=== PATIENT | male | born 1990 | race Caucasian/White ===

== ENCOUNTER 2022-01-10 20:08 | Emergency (ER) | payer SELFPAY ==
[2022-01-10 20:23] VITALS: BP 122/66; PULSE 73; RESP 15; O2SAT 95
[2022-01-10 20:30] VITALS: BP 127/74; PULSE 70; O2SAT 95
--- NOTE | 2022-01-10 20:48 | CTR_ITS ---
PROCEDURE INFORMATION: Exam: CT Abdomen And Pelvis Without Contrast Exam date and time: 01/10/2022 8:56 PM Age: 31 years old Clinical indication: Abdominal pain; Flank; Left; Additional info: Left flank llq pain TECHNIQUE: Imaging protocol: Computed tomography of the abdomen and pelvis without contrast. Radiation optimization: All CT scans at this facility use at least one of these dose optimization techniques: automated exposure control; mA and/or kV adjustment per patient size (includes targeted exams where dose is matched to clinical indication); or iterative reconstruction. COMPARISON: No relevant prior studies available. RADIATION DOSE METRICS: Total DLP (mGy-cm): 974.75 FINDINGS: Liver: Subcentimeter cyst noted in the posterior right hepatic lobe. Gallbladder and bile ducts: Normal. No calcified stones. No ductal dilation. Pancreas: Normal. No ductal dilation. Spleen: Normal. No splenomegaly. Adrenal glands: Normal. No mass. Kidneys and ureters: Normal. No hydronephrosis. Stomach and bowel: Unremarkable. No obstruction. No mucosal thickening. Appendix: No evidence of appendicitis. Intraperitoneal space: Unremarkable. No free air. No significant fluid collection. Vasculature: Unremarkable. No abdominal aortic aneurysm. Lymph nodes: Unremarkable. No enlarged lymph nodes. Urinary bladder: Under distended bladder with circumferential wall thickening. Reproductive: Unremarkable as visualized. Bones/joints: No acute fracture. Soft tissues: Unremarkable. CT/CT kidney stone [id number] IMPRESSION: No renal stones. Circumferential wall thickening the bladder, correlate with urinalysis to assess for cystitis.
[2022-01-10 21:06] LABS: Basophils # 0.1 10^3/uL (0.0-0.1); Basophils % 0.5 %; Eosinophils # 0.1 10^3/uL (0.0-0.8); Eosinophils % 0.3 %; Hematocrit 47.2 % (42.0-52.0); Hemoglobin 17.1 g/dL (11.7-16.6); Lymphocytes # 1.2 10^3/uL (0.8-4.8); Lymphocytes % 6.8 %; Mean Corpuscular HGB Conc 36.2 g/dL (30.0-36.0); Mean Corpuscular Hemoglobin 34.2 pg (28.0-34.0); Mean Corpuscular Volume 94.4 fl (80-94); Mean Platelet Volume 11.4 fL (7.4-10.4); Monocytes # 1.1 10^3/uL (0.2-0.9); Monocytes % 6.1 %; Neutrophils # 15.37 10^3/uL (1.8-7.7); Neutrophils % 85.4 %; Nucleated Red Blood Cells % 0 %; Platelet Count 239 10^3/cmm (130-400); Red Cell Distribution Width 11.8 % (12.1-15.1)
[2022-01-10] MEDS: ondansetron 2 mg/ML SDV 2 mL 4 MG IVP (21:10)
[2022-01-10] MEDS: morphine 4 mg/mL SDV 1 mL IVP (21:10)
[2022-01-10] MEDS: sodium chloride 0.9% 1,000 ML 999 ML IV (21:10)
[2022-01-10 21:24] LABS: Add Urine Microscopic? YES; Bilirubin Urine Neg (Negative); Blood Urine 3+ (Negative); Glucose Urine UA Norm (Normal); Ketones Urine Negative (Negative); Leukocyte Esterase Urine Negative (Negative); Nitrate Urine Negative (Negative); Protein Urine Neg (Negative); Urine Appearance Clear (CLEAR); Urine Color Yellow (Yellow); Urobilinogen Urine Norm (Negative); pH Urine 7 (5-7)
[2022-01-10 21:25] LABS: Alanine Aminotransferase 19 U/L (0-41); Alkaline Phosphatase 80 IU/L (40-130); Anion Gap 22.7 (5-19); Aspartate Amino Transferase 26 U/L (0-40); Blood Urea Nitrogen 20 mg/dL (6-20); Calcium 9.6 mg/dL (8.5-10.5); Carbon Dioxide 22 mmol/L (22-29); Chloride 97 mmol/L (98-107); Globulin 2.7 g/dL (1.3-4.6); Glomerular Filtration Rate 63.6 mL/min (90-130); Glucose 100 mg/dL (65-115); Lipase 19 U/L (13-60); Osmolality Calculated 289 mOsm/kg (285-295); Potassium 3.7 mmol/L (3.5-5.1); Sodium 138 mmol/L (136-145); Total Bilirubin 0.6 mg/dL (0.15-1.2); Total Protein 7.7 g/dL (6.6-8.7)
[2022-01-10 21:27] LABS: Add Urine Culture? Yes; Bacteria Urine TRACE /hpf; Mucus Urine 1+ /hpf; RBC Urine 15-25 /hpf (0-2); Squamous Epithelial Cell Urine 0-4 /hpf (0-5); WBC Urine 0-4 /hpf (0-5)
[2022-01-10 21:30] VITALS: BP 134/72; PULSE 71; O2SAT 98
[2022-01-10 22:00] VITALS: BP 133/71; PULSE 64; O2SAT 96
[2022-01-10 22:30] VITALS: BP 122/64; PULSE 56; O2SAT 97
--- NOTE | 2022-01-10 22:49 | W.ED.ABDPA2 ---
HPI - Abdominal Pain General: Chief Complaint: Abdominal Pain Stated Complaint: ABD PAIN Time Seen by Provider: 01/10/22 20:36 Source: patient History of Present Illness: 31-year-old male who began to complain of left-sided flank and left lower quadrant pain earlier today. Sudden onset. He vomited as well. No fever. He had 1 episode of urgency of urine. Pain improved after IV pain medication in route on the ambulance. He notes some continued left lower quadrant type tenderness. MD elicited complaint: abdominal pain and flank pain Pertinent past history: none Onset (ago): hour(s) Pain Consistency: constant Location: LLQ and L flank Quality: stabbing and aching Migration to: no migration Exacerbating factors: nothing Relieving factors: nothing Associated Symptoms: Reports change in bowel habits, constipation (Mild), nausea and vomiting; Denies dysuria, fever(s), hematochezia, hematuria and hematemesis Review of Systems Const: Denies: fever(s) ENMT: Denies: throat pain Card: Denies: chest pain Resp: Denies: dyspnea GI: Reports: nausea, vomiting, constipation (Mild) and change in bowel habits; Denies: hematemesis or hematochezia : Reports: flank pain and urinary urgency; Denies: dysuria or hematuria Skin/Breast: Denies: rash Neuro: Denies: headache(s) Physical Exam Const: GENERAL APPEARANCE: cooperative; not frail appearing HENMT: COMMON NORMALS: normocephalic, atraumatic and Normal external nose present HEAD & SCALP: normocephalic and atraumatic NOSE: Normal external nose present and No nasal polyps present Eye: COMMON NORMALS: Equal, round and reactive pupils present and EOMs intact bilaterally PUPIL: Yes Equal, round and reactive pupils present Chest: COMMONS NORMALS: normal inspection of the chest CHEST: Yes Symmetrical chest wall rise Resp: COMMON NORMALS: normal respiratory effort, No use of accessory muscles and clear to auscultation bilaterally AUSCULTATION: clear to auscultation bilaterally Cardio: COMMON NORMALS: regular rate and regular rhythm RATE: regular rate RHYTHM: regular rhythm GI: COMMON NORMALS: Normal to inspection, nondistended, normoactive bowel sounds present and Soft to palpation PALPATION: Yes Soft to palpation and Yes Tenderness to palpation present (GI) Details: LLQ : BLADDER/KIDNEY EXAM: Yes CVA tenderness on the left (Mild) Back/Pelvis: GENERAL BACK: Yes CVA tenderness Extremity: COMMON NORMALS: no pedal edema Neuro: NACHO COMA SCALE: document GCS findings Kimberly coma scale eye opening: Spontaneous Nacho coma scale verbal response: Orientated Kimberly coma scale motor response: Obey commands Nacho coma scale total score: 15 Skin: COMMON NORMALS: no rashes or lesions noted GENERAL SKIN EXAM: no rashes or lesions noted Course Vital Signs: Vital signs: Vital Signs Pulse Rate 56 L 01/10/22 22:30 Respiratory Rate 15 01/10/22 20:23 Blood Pressure 122/64 01/10/22 22:30 Pulse Oximetry 97 01/10/22 22:30 MDM - Abdominal Pain Medical Decision Making White blood cell count is 18. Creatinine is 1.3. Pain is improved here. CT does not show an obstructing stone. Bowel is normal. There is some wall thickening of the bladder, but the patient does not have urinary tract infection by urinalysis. He does have some microscopic hematuria, likely a passed stone. With improvement in his symptoms he will be allowed home. Lab Data : 01/10/22 20:30 01/10/22 20:30 Labs/Radiology: Radiology Impressions Abdomen/Pelvis CT 01/10/22 20:48 IMPRESSION: No renal stones. Circumferential wall thickening the bladder, correlate with urinalysis to assess for cystitis. Laboratory Results WBC 18.0 10^3/uL (4.0-10.0) H 01/10/22 20:30 RBC 5.00 10^6/uL (4.1-5.3) 01/10/22 20:30 Hgb 17.1 g/dL (11.7-16.6) H 01/10/22 20:30 Hct 47.2 % (42.0-52.0) 01/10/22 20:30 MCV 94.4 fl (80-94) H 01/10/22 20:30 MCH 34.2 pg (28.0-34.0) H 01/10/22 20:30 MCHC 36.2 g/dL (30.0-36.0) H 01/10/22 20:30 RDW 11.8 % (12.1-15.1) L 01/10/22 20:30 Plt Count 239 10^3/cmm (130-400) 01/10/22 20:30 MPV 11.4 fL (7.4-10.4) H 01/10/22 20:30 Neut % (Auto) 85.4 % 01/10/22 20: Lymph % (Auto) 6.8 % 01/10/22 20:30 [place] % (Auto) 6.1 % 01/10/22 20:30 Eos % (Auto) 0.3 % 01/10/22 20:30 Baso % (Auto) 0.5 % 01/10/22 20:30 Neut # (Auto) 15.37 10^3/uL (1.8-7.7) H 01/10/22 20:30 Lymph # (Auto) 1.2 10^3/uL (0.8-4.8) 01/10/22 20: [place] # (Auto) 1.1 10^3/uL (0.2-0.9) H 01/10/22 20:30 Eos # (Auto) 0.1 10^3/uL (0.0-0.8) 01/10/22 20: Baso # (Auto) 0.1 10^3/uL (0.0-0.1) 01/10/22 20: Nucleated RBC % (auto) 0 % 01/10/22: Nucleated RBCs # 0.0 /100WBC 01/10/22 20:30 Sodium 138 mmol/L (136-145) 01/10/22 20:30 Potassium 3.7 mmol/L (3.5-5.1) 01/10/22 20:30 Chloride 97 mmol/L (98-107) L 01/10/22 20:30 Carbon Dioxide 22 mmol/L (22-29) 01/10/22 20:30 Anion Gap 22.7 (5-19) H 01/10/22 20:30 BUN 20 mg/dL (6-20) 01/10/22 20:30 Creatinine 1.3 mg/dL (0.7-1.2) H 01/10/22 20:30 GFR Calculation 63.6 mL/min (90-130) L 01/10/22 20: Glucose 100 mg/dL (65-115) 01/10/22 20:30 Calculated Osmolality 289 mOsm/kg (285-295) 07/08/22 20:30 Calcium 9.6 mg/dL (8.5-10.5) 01/10/22 20:30 Total Bilirubin 0.6 mg/dL (0.15-1.2) 01/10/22 20:30 AST 26 U/L (0-40) 01/10/22 20:30 ALT 19 U/L (0-41) 01/10/22 20:30 Alkaline Phosphatase 80 IU/L (40-130) 01/10/22 20:30 C-Reactive Protein 3.0 mg/L (0.0-4.9) 01/10/22 20:30 Total Protein 7.7 g/dL (6.6-8.7) 01/10/22 20:30 Albumin 5.0 g/dL (3.5-5.2) 01/10/22 20:30 Globulin 2.7 g/dL (1.3-4.6) 01/10/22 20:30 Lipase 19 U/L (13-60) 01/10/22 20:30 Urine Color Yellow (Yellow) 01/10/22 20:53 Urine Appearance Clear (CLEAR) 01/10/22 20:53 Urine pH 7 (5-7) 01/10/22 20:53 Ur Specific [place] 1.010 (1.005-1.030) 01/10/22 20:53 Urine Protein Neg (Negative) 01/10/22 20:53 Urine Glucose (UA) Norm (Normal) 01/10/22 20:53 Urine Ketones Negative (Negative) 01/10/22 20:53 Urine Blood 3+ (Negative) H 01/10/22 20:53 Urine Nitrate Negative (Negative) 01/10/22 20:53 Urine Bilirubin Neg (Negative) 01/10/22 20:53 Urine Urobilinogen Norm mg/dL (Negative) 01/10/22 20:53 Ur Leukocyte Esterase Negative (Negative) 01/10/22 20:53 Urine RBC 15-25 /hpf (0-2) H 01/10/22 20:53 Urine WBC 0-4 /hpf (0-5) H 01/10/22 20:53 Ur Squamous Epith Cells 0-4 /hpf (0-5) H 01/10/22 20:53 Amorphous Sediment Not Reportable 01/10/22 20:53 Urine Bacteria Trace /hpf (NONE) 01/10/22 20:53 Urine Mucus 1+ /hpf 01/10/22 20:53 Discharge Plan Discharge Patient Disposition: Home Clinical Impression: Renal colic Condition: Stable Prescriptions: New hydrocodone-acetaminophen 5-325 mg tablet 1 tab PO Q8H PRN (Reason: pain) Qty: 7 0RF ondansetron 4 mg film 4 mg PO DAILY PRN (Reason: nausea and vomiting) Qty: 10 0RF Discharge Orders: Discharge ED (Routine); Ordered 01/10/22 Ordered By: Chencho Cross Patient Instructions: Renal Colic (ED) Activity Restrictions/Additional Instructions: Return for worsening pain despite treatment, fever greater than 100, vomiting liquids or medications, any other concerning symptoms. 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
--- NOTE | 2022-01-10 22:52 | PC.NURSE ---
Patient sent home with Oxycodone5/325 per MD order.
[2022-01-10] MEDS: ketorolac 30 mg/mL INJ 15 MG IVP (22:57)
== END 2022-01-10 23:27 | disposition home or self-care (01) ==
PROVIDERS: Emergency Provider Emergency Medicine
DX: N23 Unspecified renal colic (principal)
CPT/HCPCS: 74176; 80053; 81001; 83690; 85025; 86140; 87086; 96374; 96375; 99285; J1885; J2270; J2405; J7030

== ENCOUNTER 2024-12-07 15:56 | Outpatient (CLI) | payer OTHER, SELFPAY ==
--- NOTE | 2024-12-07 16:14 | US_ITS ---
WS: [id number] INDICATION: Neck lump TECHNIQUE: Ultrasound soft tissue FINDINGS: Ultrasound soft tissue neck area of concern. Cystic appearing structures in the area of concern are nonspecific but may be due to ductal dilatation in the area of the LEFT submandibular gland. Salivary gland ductal dilatation can be seen with sialoadenitis. Recommend further evaluation with contrast-enhanced neck CT for better anatomic detail of the submandibular gland and related structures. US/US soft tissue head neck [id number] IMPRESSION: See discussion above
== END 2024-12-07 15:57 | disposition home or self-care (01) ==
PROVIDERS: Visit Provider Nurse Practitioner Family
DX: R22.1 Localized swelling, mass and lump, neck (principal)
CPT/HCPCS: 76536

== ENCOUNTER 2024-12-27 15:41 | Outpatient (CLI) | payer OTHER, SELFPAY ==
--- NOTE | 2024-12-27 15:57 | CT_ITS ---
WS: [id number] CT NECK WITH CONTRAST HISTORY: LOCALIZED SWELLING, MASS AND LUMP, NECK, LEFT pain. TECHNIQUE: Contiguous 2 mm axial images are performed through the neck with intravenous contrast. Sagittal and coronal reformats are also submitted. All CT scans at [facility] use at least one of these dose optimization techniques: automated exposure control; mA and/or kV adjustment per patient size (includes targeted exams where dose is matched to clinical indication); or iterative reconstruction. CONTRAST: CONTRAST: Omnipaque 350; 100 mL IV. DLP: 198.02 mGy.cm COMPARISON: None available. BB marker is placed over the LEFT neck at the site of swelling. LEFT submandibular gland is enlarged as compared to the RIGHT. The enlarged portion of the LEFT submandibular gland extends into the LEFT parapharyngeal space and mucosa. There is complete obliteration of the LEFT parapharyngeal fat in the parapharyngeal space. This mass is poorly defined and indistinct from the submandibular gland. There are a few small adjacent lymph nodes. The largest lymph node is at level 1B measuring 1.2 cm. There are a few additional smaller lymph nodes along the cervical chains which appear normal. No inflammation surrounding the submandibular or parotid glands. The ducts are normal. Tongue base appears normal. No compromise of the airway. Normal epiglottis. Normal thyroid gland. Parotid gland is negative. Lung apices are clear. Negative cervical spine. CT/CT neck w con* [id number] IMPRESSION: 1. Poorly defined soft tissue mass centered at the LEFT mandibular angle which is inseparable from the LEFT submandibular gland. This may be part of the LEFT submandibular gland but it is quite asymmetric to the RIGHT. Also no significa nt enhancement. 2. The soft tissue density continues into the RIGHT parapharyngeal space with complete obliteration of the fat. Suspicious for neoplasm until proven otherwis e. 3. Indeterminate level 1B lymph node on the LEFT measuring 1.2 cm. Recommendation: Follow-up with ENT.
[2024-12-27] MEDS: iohexol 350 mg/mL 500 mL Btl (per mL) IV (16:33)
== END 2024-12-27 15:42 | disposition home or self-care (01) ==
LOC: RAD 15:43
PROVIDERS: Visit Provider Nurse Practitioner Family
DX: R22.1 Localized swelling, mass and lump, neck (principal)
CPT/HCPCS: 70491

== ENCOUNTER 2025-02-22 14:41 | Outpatient (CLI) | payer OTHER, SELFPAY ==
--- NOTE | 2025-02-22 14:53 | MR_ITS ---
WS: [id number] MRI NECK WITH CONTRAST TECHNIQUE: Noncontrast axial T1, axial T2 FSE fat sat, coronal T2 fat sat, coronal T1, coronal T1 fat sat, sagittal T2 fat sat, plus contrast enhanced coronal, sagittal, and axial T1 fat sat images obtained. CLINICAL INFORMATION: NECK MASS COMPARISON: CT 12/27/2024 and ultrasound 12/07/2024 FINDINGS: Previously described nonspecific soft tissue thickening involving the LEFT mandibular angle and LEFT submandibular gland is again seen. This may be slightly improved compared to the prior neck CT. Associated increased T2 signal abnormality with suggestion of serpiginous ductal elements as seen on the prior ultrasound. The areas of soft tissue thickening and increased T2 signal demonstrate enhancement equivalent to the submandibular gland enhancement. Findings continue to have an unusual appearance and benign considerations include chronic ductal dilatation or congenital lymphatic malformation, lymphangioma, unusual mucocele or involuted ranula. Sarcoma and neoplasm however should be primarily excluded with soft tissue sampling RIGHT submandibular gland is normal. Parotid glands appear normal. 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 No other acute findings. MR/MR orbit face neck wo/w* [id number] IMPRESSION: 1. See discussion above regarding the previously described unusual LEFT subman dibular lesion. Neoplasm should be primarily excluded with soft tissue sampling . See discussion above for additional considerations
[2025-02-22] MEDS: gadobenate dimeglumine 20 mL vial IV (15:34)
== END 2025-02-22 14:42 | disposition home or self-care (01) ==
LOC: RAD 14:43
PROVIDERS: Visit Provider Specialist
DX: R22.1 Localized swelling, mass and lump, neck (principal)
CPT/HCPCS: 70543